=== PATIENT | female | born 1970 | race Caucasian/White ===

== ENCOUNTER 2021-03-15 16:00 | Emergency (ER) | payer MEDICAID, OTHER ==
[~2021-03-15] VITALS: Ht 167.6 cm; Wt 91.0 kg
[~2021-03-15 16:00] MED LIST: APIX5TAB4 PO; ASPI-986 PO; METFORMIN
[2021-03-15] MEDS ORDERED: SODIUM CHLORIDE 0.9% 1,000 ML IV ONE (17:15)
[2021-03-15] MEDS ORDERED: LEVETIRACETAM 500MG PREMIX 100 ML IV ONE (17:15)
[2021-03-15 17:33] LABS: BASOPHILS % 0.6 % (0.0-2.0); EOSINOPHILS % 3.1 % (0.0-5.0); HEMATOCRIT. 36.9 % (36.0-48.0); HEMOGLOBIN. 13.1 g/dL (12.0-16.0); LYMPHOCYTES % 28.7 % (20.0-50.0); MEAN CORPUSCULAR HEMOGLOBIN 33.1 pg (28.0-32.0); MEAN CORPUSCULAR VOLUME 93.4 fL (81.0-99.0); MEAN PLATELET VOLUME 8.4 fl (7.4-10.4); MONOCYTES % 5.4 % (2.0-8.0); NEUTROPHILS % 62.2 % (40.0-76.0); PLATELET 228 x1000/uL (130-400); RED BLOOD CELL COUNT 3.95 mill/uL (4.2-5.4); RED CELL DISTRIBUTION WIDTH 12.9 % (11.6-14.6)
[2021-03-15 17:37] LABS: CHLORIDE 110 mEq/L (98-107)
[2021-03-15 17:42] LABS: HCG SCREEN NEGATIVE
[2021-03-15] MEDS ORDERED: LORAZEPAM 2MG/ML CPJ IV ONE (18:30)
[2021-03-15 20:10] VITALS: BP 127/76
== END 2021-03-15 21:13 | disposition home or self-care (01) ==
LOC: ER 16:00
DX: G40.909 Epilepsy, unspecified, not intractable, without status epilepticus (principal); I10 Essential (primary) hypertension; I69.354 Hemiplegia and hemiparesis following cerebral infarction affecting left non-dominant side
CPT/HCPCS: 36415; 80053; 84703; 85025; 96365; 96375; 99284; J1953; J2060; J7030

== ENCOUNTER 2024-01-21 21:20 | Emergency (ER) | payer MEDICARE, MEDICAID ==
[~2024-01-21] VITALS: Ht 170.2 cm; Wt 100.0 kg
[~2024-01-21 21:20] MED LIST changes: +APIX2.5T PO; -APIX5TAB4 PO; -ASPI-986 PO; +ATOR40TA70 PO; -METFORMIN; +SERT25TA74 PO
[2024-01-21 21:23] VITALS: TEMP 98.4; O2SAT 100
[2024-01-21] MEDS: LORAZEPAM 2MG/ML INJ IV ONE (22:15)
[2024-01-21] MEDS: LEVETIRACETAM 500MG PREMIX 100 ML IV ONE (22:16)
[2024-01-21 23:06] LABS: BASOPHILS % 0.5 % (0.0-2.0); EOSINOPHILS % 2.4 % (0.0-5.0); HEMATOCRIT. 38.2 % (36.0-48.0); HEMOGLOBIN. 12.9 g/dL (12.0-16.0); LYMPHOCYTES % 51.7 % (20.0-50.0); MEAN CORPUSCULAR HEMOGLOBIN 32.1 pg (28.0-32.0); MEAN CORPUSCULAR HGB CONC 33.9 g/dL (31.0-37.0); MEAN CORPUSCULAR VOLUME 94.7 fL (81.0-99.0); MEAN PLATELET VOLUME 8.9 fl (7.4-10.4); MONOCYTES % 6.2 % (2.0-8.0); NEUTROPHILS % 39.2 % (40.0-76.0); PLATELET 257 x1000/uL (130-400); RED BLOOD CELL COUNT 4.03 mill/uL (4.2-5.4); RED CELL DISTRIBUTION WIDTH 12.4 % (11.6-14.6); WHITE BLOOD COUNT 7.8 x1000/uL (4.5-11.0)
[2024-01-21 23:17] LABS: ALANINE AMINOTRANSFERASE 13 IU/L (10-49); ALBUMIN 4.6 g/dL (3.2-4.8); ASPARTATE AMINOTRANSFERASE 17 IU/L (<34); BILIRUBIN TOTAL 0.2 mg/dL (0.1-1.0); CALCIUM 8.8 mg/dL (8.7-10.4); CARBON DIOXIDE 17 mEq/L (21-32); CHLORIDE 110 mEq/L (98-107); CREATININE 0.8 mg/dL (0.6-1.0); ETHANOL BLOOD 195 mg/dL (<10); GLUCOSE 124 mg/dL (70-105); POTASSIUM 3.6 mEq/L (3.5-5.1); PROTEIN TOTAL 7.6 g/dL (6.0-8.3); SODIUM 143 mEq/L (136-145); UREA NITROGEN BLOOD 9 mg/dL (9-23)
[2024-01-22 02:50] VITALS: BP 105/69; PULSE 84; RESP 15
== END 2024-01-22 02:51 | disposition home or self-care (01) ==
LOC: ER 21:20
DX: F10.20 Alcohol dependence, uncomplicated (principal); E11.9 Type 2 diabetes mellitus without complications; I10 Essential (primary) hypertension; Z86.73 Personal history of transient ischemic attack (TIA), and cerebral infarction without residual deficits; Z79.899 Other long term (current) drug therapy; R56.9 Unspecified convulsions
CPT/HCPCS: 80053; 80320; 85025; 36415; 96365; 96375; 99285; J1953; J2060; G0480

== ENCOUNTER 2024-02-18 21:12 | Emergency (ER) | payer MEDICARE, MEDICAID ==
[~2024-02-18] VITALS: Ht 175.3 cm; Wt 102.0 kg
[2024-02-18 21:15] VITALS: O2SAT 96
[2024-02-18] MEDS: LEVETIRACETAM 1000MG PREMIX 100 ML IV ONE (21:30)
[2024-02-18 22:28] LABS: BASOPHILS % 0.8 % (0.0-2.0); EOSINOPHILS % 1.6 % (0.0-5.0); HEMATOCRIT. 39.3 % (36.0-48.0); HEMOGLOBIN. 13.1 g/dL (12.0-16.0); LYMPHOCYTES % 45.4 % (20.0-50.0); MEAN CORPUSCULAR HEMOGLOBIN 31.5 pg (28.0-32.0); MEAN CORPUSCULAR HGB CONC 33.4 g/dL (31.0-37.0); MEAN CORPUSCULAR VOLUME 94.3 fL (81.0-99.0); MEAN PLATELET VOLUME 8.7 fl (7.4-10.4); MONOCYTES % 3.7 % (2.0-8.0); NEUTROPHILS % 48.5 % (40.0-76.0); PLATELET 248 x1000/uL (130-400); RED BLOOD CELL COUNT 4.17 mill/uL (4.2-5.4); RED CELL DISTRIBUTION WIDTH 13.1 % (11.6-14.6)
[2024-02-18 22:45] LABS: ALANINE AMINOTRANSFERASE 14 IU/L (10-49); ALBUMIN 4.7 g/dL (3.2-4.8); ASPARTATE AMINOTRANSFERASE 21 IU/L (<34); BILIRUBIN TOTAL 0.2 mg/dL (0.1-1.0); CALCIUM 8.4 mg/dL (8.7-10.4); CARBON DIOXIDE 18 mEq/L (21-32); CHLORIDE 107 mEq/L (98-107); CREATININE 0.6 mg/dL (0.6-1.0); ETHANOL BLOOD 233 mg/dL (<10); GLUCOSE 125 mg/dL (70-105); POTASSIUM 3.7 mEq/L (3.5-5.1); PROTEIN TOTAL 6.9 g/dL (6.0-8.3); SODIUM 141 mEq/L (136-145); UREA NITROGEN BLOOD 7 mg/dL (9-23)
[2024-02-19] MEDS: LEVETIRACETAM 1000MG PREMIX 100 ML IV NR (00:40)
[2024-02-19 02:49] VITALS: BP 126/81; PULSE 75; RESP 16; TEMP 98.5
== END 2024-02-19 03:18 | disposition home or self-care (01) ==
LOC: ER 21:12
DX: F10.129 Alcohol abuse with intoxication, unspecified (principal); E11.9 Type 2 diabetes mellitus without complications; I10 Essential (primary) hypertension; Z86.73 Personal history of transient ischemic attack (TIA), and cerebral infarction without residual deficits; Y90.7 Blood alcohol level of 200-239 mg/100 ml
CPT/HCPCS: 80053; 80320; 85025; 36415; 70450; 96365; 96366; 99285; J1953; G0480

== ENCOUNTER 2024-02-25 22:39 | Emergency (ER) | payer MEDICAID, MEDICARE ==
[~2024-02-25] VITALS: Ht 162.6 cm; Wt 75.0 kg
[2024-02-25 22:48] VITALS: O2SAT 99
[2024-02-25 23:52] LABS: BASOPHILS % 0.6 % (0.0-2.0); EOSINOPHILS % 1.9 % (0.0-5.0); HEMATOCRIT. 44.1 % (36.0-48.0); HEMOGLOBIN. 14.5 g/dL (12.0-16.0); LYMPHOCYTES % 51.7 % (20.0-50.0); MEAN CORPUSCULAR HEMOGLOBIN 32.7 pg (28.0-32.0); MEAN CORPUSCULAR HGB CONC 32.9 g/dL (31.0-37.0); MEAN CORPUSCULAR VOLUME 99.2 fL (81.0-99.0); MONOCYTES % 5.5 % (2.0-8.0); NEUTROPHILS % 40.3 % (40.0-76.0); RED BLOOD CELL COUNT 4.44 mill/uL (4.2-5.4); RED CELL DISTRIBUTION WIDTH 13.1 % (11.6-14.6)
[2024-02-26] VITALS: TEMP 98
[2024-02-26 00:05] LABS: DIFFERENTIAL COMMENT 1
[2024-02-26 00:09] LABS: ALANINE AMINOTRANSFERASE 15 IU/L (10-49); ALBUMIN 5.2 g/dL (3.2-4.8); ASPARTATE AMINOTRANSFERASE 27 IU/L (<34); BILIRUBIN TOTAL 0.2 mg/dL (0.1-1.0); CHLORIDE 109 mEq/L (98-107); CREATININE 0.8 mg/dL (0.6-1.0); ETHANOL BLOOD 204 mg/dL (<10); GLUCOSE 127 mg/dL (70-105); PROTEIN TOTAL 8.6 g/dL (6.0-8.3); SODIUM 142 mEq/L (136-145); UREA NITROGEN BLOOD 7 mg/dL (9-23)
[2024-02-26 00:34] LABS: CARBAMAZEPINE < 0.4 ug/mL (4-12); PHENYTOIN < 2.0 ug/mL (10-20); VALPROIC ACID < 3.0 ug/mL (50-100)
[2024-02-26 00:37] LABS: CARBON DIOXIDE < 10 mEq/L (21-32)
[2024-02-26] MEDS ORDERED: SODIUM CHLORIDE 0.9% 1,000 ML IV NR (01:45)
[2024-02-26 04:49] LABS: MEAN PLATELET VOLUME 9.6 fl (7.4-10.4)
[2024-02-26 04:50] LABS: PLATELET 215 x1000/uL (130-400)
[2024-02-26 04:51] LABS: CALCIUM 8.8 mg/dL (8.7-10.4); CARBON DIOXIDE 19 mEq/L (21-32); CHLORIDE 110 mEq/L (98-107); CREATININE 0.6 mg/dL (0.6-1.0); GLUCOSE 93 mg/dL (70-105); POTASSIUM 3.7 mEq/L (3.5-5.1); SODIUM 141 mEq/L (136-145); UREA NITROGEN BLOOD 6 mg/dL (9-23)
[2024-02-26 06:04] LABS: CLARITY URINE CLEAR (CLEAR); COLOR URINE YELLOW (YELLOW); GLUCOSE URINE NEGATIVE (NEGATIVE); KETONES URINE 1+ (NEGATIVE); LEUKOCYTE ESTERASE URINE NEGATIVE (NEGATIVE); NITRITE URINE NEGATIVE (NEGATIVE); OCCULT BLOOD URINE TRACE (NEGATIVE); PROTEIN URINE NEGATIVE (NEGATIVE); SPECIFIC GRAVITY URINE 1.016 (1.005-1.030); UROBILINOGEN URINE 0.2 E.U./dL (0.2-1.0)
[2024-02-26 07:04] LABS: SQUAMOUS EPITHELIAL CELL URINE 1+ /lpf (RARE/1+)
[2024-02-26 07:05] LABS: BACTERIA URINE NONE SEEN; RBC URINE 0-2 /hpf (0-2); WBC URINE 0-2 /hpf (0-2)
[2024-02-26 08:00] VITALS: BP 128/81; PULSE 82; RESP 14
[2024-02-26 09:53] LABS: *AMPHETAMINES SCREEN URINE NEGATIVE (NEGATIVE); *BARBITURATES SCREEN URINE NEGATIVE (NEGATIVE); *BENZODIAZEPINES SCREEN URINE NEGATIVE (NEGATIVE); *COCAINE SCREEN URINE NEGATIVE (NEGATIVE); CANNABINOID URINE SCREEN NEGATIVE (NEGATIVE); ECSTASY MDMA SCREEN URINE NEGATIVE (NEGATIVE); METHADONE URINE SCREEN Neg (NEGATIVE); OPIATES URINE SCREEN NEGATIVE (NEGATIVE); PHENCYCLIDINE URINE SCREEN NEGATIVE (NEGATIVE)
== END 2024-02-26 08:55 | disposition home or self-care (01) ==
LOC: ER 22:39
DX: R56.9 Unspecified convulsions (principal); F10.129 Alcohol abuse with intoxication, unspecified; E11.9 Type 2 diabetes mellitus without complications; I10 Essential (primary) hypertension; Z86.73 Personal history of transient ischemic attack (TIA), and cerebral infarction without residual deficits; Y90.7 Blood alcohol level of 200-239 mg/100 ml
CPT/HCPCS: 80053; 80320; 80156; 80185; 80165; 85025; 36415 ×2; 99284; 80305; 80048; 81003; 70450; Z7610 ×3; G0480

== ENCOUNTER 2024-04-14 18:23 | Emergency (ER) | payer MEDICAID ==
[~2024-04-14] VITALS: Ht 162.6 cm; Wt 80.0 kg
[2024-04-14 18:29] VITALS: BP 124/74; PULSE 75; RESP 16; TEMP 98.1; O2SAT 100
[2024-04-14] MEDS ORDERED: SODIUM CHLORIDE 0.9% 1,000 ML IV ONE (20:45)
[2024-04-14] MEDS ORDERED: LEVETIRACETAM 1000MG PREMIX 100 ML IV ONE (20:45)
== END 2024-04-14 19:00 | disposition left against medical advice (07) ==
LOC: ER 18:23
DX: R56.9 Unspecified convulsions (principal); Z53.21 Procedure and treatment not carried out due to patient leaving prior to being seen by health care provider
CPT/HCPCS: J7030

== ENCOUNTER 2025-02-09 00:52 | Emergency (ER) | payer MEDICARE ==
[~2025-02-09] VITALS: Ht 162.6 cm; Wt 75.0 kg
[~2025-02-09 00:52] MED LIST changes: +ERGO1250; +LEVE750T4 MT; +LOSA-20 MT; +METF-414 PO
[2025-02-09 00:58] VITALS: BP 148/82; PULSE 93; RESP 20; TEMP 37.1; O2SAT 98
[2025-02-09 02:17] LABS: BASOPHILS % 0.5 % (0.0-2.0); EOSINOPHILS % 3.6 % (0.0-5.0); HEMATOCRIT. 43.2 % (36.0-48.0); HEMOGLOBIN. 14.2 g/dL (12.0-16.0); LYMPHOCYTES % 39.3 % (20.0-50.0); MEAN CORPUSCULAR HEMOGLOBIN 31.8 pg (28.0-32.0); MEAN CORPUSCULAR HGB CONC 32.9 g/dL (31.0-37.0); MEAN CORPUSCULAR VOLUME 96.7 fL (81.0-99.0); MEAN PLATELET VOLUME 8.5 fl (7.4-10.4); MONOCYTES % 4.4 % (2.0-8.0); NEUTROPHILS % 52.2 % (40.0-76.0); PLATELET 230 x1000/uL (130-400); RED BLOOD CELL COUNT 4.46 mill/uL (4.2-5.4); RED CELL DISTRIBUTION WIDTH 12.7 % (11.6-14.6); WHITE BLOOD COUNT 7.8 x1000/uL (4.5-11.0)
[2025-02-09 02:31] LABS: CHLORIDE 106 mEq/L (98-107); POTASSIUM 3.5 mEq/L (3.5-5.1); SODIUM 142 mEq/L (136-145)
[2025-02-09 02:32] LABS: CARBON DIOXIDE 19 mEq/L (21-32)
[2025-02-09 02:33] LABS: CALCIUM 9.7 mg/dL (8.7-10.4)
[2025-02-09 02:37] LABS: CREATININE 0.7 mg/dL (0.6-1.0); GLUCOSE 119 mg/dL (70-105); UREA NITROGEN BLOOD 11 mg/dL (9-23)
[2025-02-09 02:38] LABS: ETHANOL BLOOD 241 mg/dL (<10); TROPONIN I HIGH SENSITIVITY 6 ng/L (3.0-34)
[2025-02-09] MEDS: LEVETIRACETAM 500MG PREMIX 100 ML IV ONE (03:00)
[2025-02-09 05:58] LABS: PARTIAL THROMBOPLASTIN TIME 30.2 sec (23.4-31.0); PROTHROMBIN TIME 10.4 sec (9.6-11.0)
[2025-02-09 08:38] LABS: *AMPHETAMINES SCREEN URINE NEGATIVE (NEGATIVE); *BARBITURATES SCREEN URINE NEGATIVE (NEGATIVE); *BENZODIAZEPINES SCREEN URINE PRESUMPTIVE POSITIVE (NEGATIVE); *COCAINE SCREEN URINE NEGATIVE (NEGATIVE); CANNABINOID URINE SCREEN NEGATIVE (NEGATIVE); ECSTASY MDMA SCREEN URINE NEGATIVE (NEGATIVE); METHADONE URINE SCREEN NEGATIVE (NEGATIVE); OPIATES URINE SCREEN NEGATIVE (NEGATIVE); PHENCYCLIDINE URINE SCREEN NEGATIVE (NEGATIVE)
== END 2025-02-09 10:20 | disposition left against medical advice (07) ==
LOC: ER 00:52 → EDBEDREQ 05:51 → EDBEDREQTM 05:51 → CANBEDREQ 09:44 → ER 10:20
DX: R53.1 Weakness (principal); R07.9 Chest pain, unspecified; F10.129 Alcohol abuse with intoxication, unspecified; G40.909 Epilepsy, unspecified, not intractable, without status epilepticus; F53.1 Puerperal psychosis; E11.9 Type 2 diabetes mellitus without complications; I10 Essential (primary) hypertension; I69.354 Hemiplegia and hemiparesis following cerebral infarction affecting left non-dominant side; Z79.01 Long term (current) use of anticoagulants; Z79.84 Long term (current) use of oral hypoglycemic drugs; Z79.899 Other long term (current) drug therapy; Y90.8 Blood alcohol level of 240 mg/100 ml or more
CPT/HCPCS: 80305; 80048; 80320; 83880; 85025; 85610; 85730; 84484; 36415; 71045; 70450; 93005; 96365; 96366; 99285; J1953; G0480

== ENCOUNTER 2025-03-01 01:55 | Emergency (ER) | payer MEDICARE ==
[~2025-03-01] VITALS: Ht 160 cm; Wt 100.0 kg
[2025-03-01 01:58] VITALS: TEMP 36.9; O2SAT 100
[2025-03-01] MEDS: LEVETIRACETAM 1000MG PREMIX 100 ML IV ONE (03:20)
[2025-03-01 04:40] VITALS: BP 102/67; PULSE 63; RESP 18; O2SAT 97
== END 2025-03-01 04:45 | disposition home or self-care (01) ==
LOC: ER 01:55
DX: R56.9 Unspecified convulsions (principal); F10.129 Alcohol abuse with intoxication, unspecified; E11.9 Type 2 diabetes mellitus without complications; I10 Essential (primary) hypertension; Z79.01 Long term (current) use of anticoagulants; Z79.899 Other long term (current) drug therapy; Z86.73 Personal history of transient ischemic attack (TIA), and cerebral infarction without residual deficits; Y90.9 Presence of alcohol in blood, level not specified
CPT/HCPCS: 99284; 96365; J1953

== ENCOUNTER 2025-11-19 22:40 | Emergency (ER) | payer MEDICARE ==
[~2025-11-19] VITALS: Ht 162.6 cm; Wt 90.0 kg
[2025-11-19 23:06] VITALS: O2SAT 99
[2025-11-19 23:48] LABS: BASOPHILS % 0.9 % (0.0-2.0); EOSINOPHILS % 2.3 % (0.0-5.0); HEMATOCRIT. 40.3 % (36.0-48.0); HEMOGLOBIN. 13.2 g/dL (12.0-16.0); LYMPHOCYTES % 38.9 % (20.0-50.0); MEAN PLATELET VOLUME 8.4 fl (7.4-10.4); MONOCYTES % 5.8 % (2.0-8.0); NEUTROPHILS % 52.1 % (40.0-76.0); PLATELET 232 x1000/uL (130-400); RED BLOOD CELL COUNT 4.11 mill/uL (4.2-5.4); RED CELL DISTRIBUTION WIDTH 12.8 % (11.6-14.6)
[2025-11-19 23:59] LABS: CREATININE 0.8 mg/dL (0.6-1.0)
[2025-11-20] LABS: ETHANOL BLOOD 139 mg/dL (<10); PROTEIN TOTAL 7.1 g/dL (6.0-8.3); UREA NITROGEN BLOOD 7 mg/dL (9-23)
[2025-11-20 00:01] LABS: ASPARTATE AMINOTRANSFERASE 16 IU/L (<34)
[2025-11-20 00:02] LABS: BILIRUBIN DIRECT < 0.1 mg/dL (<=3.0); BILIRUBIN TOTAL 0.2 mg/dL (0.1-1.0)
[2025-11-20 00:32] VITALS: BP 108/64; PULSE 66; RESP 13; TEMP 36.8; O2SAT 99
== END 2025-11-20 00:36 | disposition home or self-care (01) ==
LOC: ER 22:40
DX: F10.229 Alcohol dependence with intoxication, unspecified (principal); E11.9 Type 2 diabetes mellitus without complications; G40.909 Epilepsy, unspecified, not intractable, without status epilepticus; I10 Essential (primary) hypertension; Z79.899 Other long term (current) drug therapy; Z79.01 Long term (current) use of anticoagulants; Z86.73 Personal history of transient ischemic attack (TIA), and cerebral infarction without residual deficits; Y90.9 Presence of alcohol in blood, level not specified
CPT/HCPCS: 36415; 80048; 80076; 80307; 80320; 80329; 85025; 99283; G0480